=== PATIENT | female | born 1980 | race Caucasian/White ===

== ENCOUNTER 2024-05-15 06:16 | Emergency (ER) | payer MEDICAID, OTHER ==
[~2024-05-15] VITALS: Ht 162.6 cm; Wt 93.0 kg
[2024-05-15 06:39] VITALS: O2SAT 100
[2024-05-15 07:11] LABS: BASOPHILS % 0.8 % (0.0-2.0); EOSINOPHILS % 2.5 % (0.0-5.0); HEMATOCRIT. 40.3 % (36.0-48.0); HEMOGLOBIN. 13.5 g/dL (12.0-16.0); LYMPHOCYTES % 17.4 % (20.0-50.0); MEAN CORPUSCULAR HGB CONC 33.5 g/dL (31.0-37.0); MEAN CORPUSCULAR VOLUME 89.4 fL (81.0-99.0); MEAN PLATELET VOLUME 9.2 fl (7.4-10.4); MONOCYTES % 6.9 % (2.0-8.0); NEUTROPHILS % 72.4 % (40.0-76.0); PLATELET 223 x1000/uL (130-400); RED BLOOD CELL COUNT 4.51 mill/uL (4.2-5.4); RED CELL DISTRIBUTION WIDTH 14.5 % (11.6-14.6); WHITE BLOOD COUNT 7.3 x1000/uL (4.5-11.0)
[2024-05-15 07:18] LABS: CHLORIDE 107 mEq/L (98-107); POTASSIUM 3.7 mEq/L (3.5-5.1); SODIUM 137 mEq/L (136-145)
[2024-05-15 07:20] LABS: CALCIUM 9.5 mg/dL (8.7-10.4); CARBON DIOXIDE 24 mEq/L (21-32)
[2024-05-15 07:25] LABS: CREATININE 0.9 mg/dL (0.6-1.0); GLUCOSE 100 mg/dL (70-105); UREA NITROGEN BLOOD 13 mg/dL (9-23)
[2024-05-15 07:56] LABS: HCG SCREEN INDETERMINATE
[2024-05-15 08:02] LABS: HCG SCREEN INDETERMINATE
[2024-05-15 08:36] LABS: B-HCG QUANTITATIVE 27 mIU/mL (<3)
[2024-05-15 10:09] LABS: CLARITY URINE CLOUDY (CLEAR); COLOR URINE BLOODY (YELLOW); PROTEIN URINE 3+ (NEGATIVE); SPECIFIC GRAVITY URINE 1.015 (1.005-1.030)
[2024-05-15 10:10] LABS: GLUCOSE URINE TRACE (NEGATIVE); KETONES URINE 1+ (NEGATIVE); LEUKOCYTE ESTERASE URINE 3+ (NEGATIVE); NITRITE URINE POSITIVE (NEGATIVE); OCCULT BLOOD URINE 3+ (NEGATIVE); UROBILINOGEN URINE >8.0 E.U./dL (0.2-1.0)
[2024-05-15 10:11] LABS: BACTERIA URINE 3+; RBC URINE TNTC /hpf (0-2); WBC URINE 25-50 /hpf (0-2); YEAST URINE NONE SEEN
[2024-05-15 10:13] LABS: SQUAMOUS EPITHELIAL CELL URINE 1+ /lpf (RARE/1+)
[2024-05-15] MEDS ORDERED: NITR-87 MT (12:58)
[2024-05-15 13:00] VITALS: BP 128/78; PULSE 72; RESP 18; TEMP 37.05852; O2SAT 99
== END 2024-05-15 13:00 | disposition home or self-care (01) ==
LOC: ER 06:16
DX: O46.91 Antepartum hemorrhage, unspecified, first trimester (principal); Z3A.00 Weeks of gestation of pregnancy not specified
CPT/HCPCS: 36415; 76830; 76856; 80048; 81003; 81025; 84702; 84703; 85025; 86850; 86900; 99284